=== PATIENT | female | born 2000 | race Caucasian/White ===

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

== ENCOUNTER 2022-02-20 15:13 | Emergency (ER) | payer OTHER, BC, SELFPAY ==
[2022-02-20 15:19] VITALS: BP 110/71; PULSE 87; RESP 16; TEMP 37.2; O2SAT 100
--- NOTE | 2022-02-20 16:27 | ED.URI ---
HPI - URI/Sore Throat General Chief Complaint: Upper Respiratory Infection Stated Complaint: flu Time Seen by Provider: 02/20/22 16:27 Source: patient, RN notes reviewed and old records reviewed Mode of arrival: ambulatory Limitations: no limitations History of Present Illness HPI Narrative: 22-year-old female presents to [facility] with complaints of 1 day duration of sore throat, fevers,body aches, some headache pain. Patient denies any ear pain, reports that she has some body aches,has not taken any OTC medication for her symptoms.Patient reports that she has had COVID vaccinations and also flu shot. MD elicited complaint: sore throat, rhinorrhea, nasal congestion and other (headache) Onset (ago): day(s) (1) Treatments prior to arrival: none Related Data Home Medications Medication Instructions Recorded Confirmed levonorgestrel 20 mcg/24 hours (8 1 insert intrauterine ONCE 02/24/21 02/24/21 yrs) 52 mg intrauterine device (Mirena) Allergies Allergy/AdvReac Type Severity Reaction Status Date / Time No Known Allergies Allergy Unknown Verified 02/24/21 19:03 Review of Systems Review of Systems: CONSTITUTIONAL: Reports malaise, chills, sweats, or fever. EYES: Denies visual changes, redness, or discharge. ENT: Reports rhinorrhea, congestion, sinus pain,no otalgia some sore throat. CARDIOVASCULAR: Denies chest pain, palpitations, or edema. RESPIRATORY: Reports cough.? Denies dyspnea. GASTROINTESTINAL: Denies abdominal pain,no nausea, vomiting, diarrhea SKIN: Denies rash or itching. MUSCULOSKELETAL: Reports myalgia. NEUROLOGIC: positive headache. All systems reviewed & are unremarkable except as noted in HPI and below PMFSH Comments At time of signature, agree with nursing past medical, surgical, social and family history. There is no relevant family history pertinent to the presenting complaint Exam Narrative: GENERAL: Well-appearing, well-nourished, and in no acute distress. HEAD: Normocephalic EYES: PERRLA, conjunctivae clear ENT: Nares clear, turbinates edematous and erythematous, clear discharge. Mucous membranes moist. TM pearly mccoy with dull light reflex bilaterally; no tragal tenderness. Oropharynx erythematous without lesions. Tonsils not enlarged and without exudate, no drooling, no hoarseness, no trismus, uvula midline. Postnasal drainage noted NECK: Supple. No lymphadenopathy CHEST: Clear to auscultation, breath sounds equal. No wheezing, rhonchi, rales, or stridor. No respiratory distress, speaks in full sentences. Cough SaO2 HEART: Regular rate and rhythm. No murmur heard. SKIN: Warm, dry, no rash. NEURO: Alert and oriented x3. PSYCH: Normal mood and affect Course Course Emergency Course: Patient is aware of diagnosis, understands and agrees to treatment plan.? Anticipatory guidance given.? Patient agrees to follow-up as directed and is aware of reasons to seek care at the emergency department. Portions of this record may have been created with voice recognition software Level of Care: Express Care Visit Vital Signs Vital signs: Vital Signs Temperature 37.2 C 02/20/22 15:19 Pulse Rate 87 02/20/22 15:19 Respiratory Rate 16 02/20/22 15:19 Blood Pressure 110/71 02/20/22 15:19 Pulse Oximetry 100 02/20/22 15:19 Oxygen Delivery Room Air 02/20/22 15:19 Temperature 37.2 C 02/20/22 15:19 Pulse Rate 87 02/20/22 15:19 Respiratory Rate 16 02/20/22 15:19 Blood Pressure 110/71 02/20/22 15:19 Pulse Oximetry 100 02/20/22 15:19 Oxygen Delivery Room Air 02/20/22 15:19 Reviewed MDM - URI/Sore Throat MDM Narrative Medical decision making narrative: Differential diagnosis considered: Pina virus, strep pharyngitis, allergic rhinitis, upper respiratory tract infection, sinusitis, rhinosinusitis, nasopharyngitis. viral pharyngitis, otitis media, otitis externa, pneumonia, bronchitis, viral cough syndrome, viral syndrome, and
== END 2022-02-20 16:54 | disposition home or self-care (01) ==
PROVIDERS: Emergency Provider Registered Nurse; PCP Pediatrics
DX: J06.9 Acute upper respiratory infection, unspecified (principal)
CPT/HCPCS: 99213; G0463

== ENCOUNTER 2022-05-01 12:34 | Emergency (ER) | payer OTHER, BC, SELFPAY ==
--- NOTE | 2022-05-01 12:38 | ED.NAVMDI ---
HPI - Nausea/Vomiting/Diarrhea General Chief complaint: Nausea/Vomiting/Diarrhea Stated complaint: vomiting/weakness Time Seen by Provider: 05/01/22 12:39 Source: patient and RN notes reviewed History of Present Illness HPI Narrative: Patient is a 22-year-old female presents to urgent care with mother with complaints of vomiting yesterday and upset stomach today. Patient states that she had chicken yesterday and no one else in the home was ill. States that it started about 2:00 a.m. and lasted till 2:00 p.m. on Sunday. Patient states she has not vomited or had any diarrhea since then but does have an upset stomach. Denies any known fevers. States that she has been able to eat or drink without vomiting. No other acute complaints. No acute distress noted. Patient aware of the plan of care. Some parts of this dictation were generated by voice recognition software and may contain typographical and/or grammatical inaccuracies. Related Data Home Medications Medication Instructions Recorded Confirmed levonorgestrel 21 mcg/24 hours (8 1 insert intrauterine ONCE 02/24/21 05/01/22 yrs) 52 mg intrauterine device (Mirena) Allergies Allergy/AdvReac Type Severity Reaction Status Date / Time No Known Allergies Allergy Unknown Verified 05/01/22 12:47 Review of Systems Review of Systems: CONSTITUTIONAL: Denies fever, chills, or sweats. EYES: Denies visual changes, redness, or discharge. ENT: Denies rhinorrhea, congestion, sore throat, or otalgia. CARDIOVASCULAR: Denies chest pain, palpitations, or edema. RESPIRATORY: Denies cough or dyspnea. GASTROINTESTINAL: Reports of upset stomach and vomiting yesterday GENITOURINARY: Denies dysuria or hematuria. SKIN: Denies rash or itching. MUSCULOSKELETAL: Denies back pain, joint pain, or myalgia. NEUROLOGIC: Denies headache, numbness, or weakness. All other systems reviewed are negative, except as documented in HPI. PMFSH Comments At the time of my signature, I reviewed and agree with the nursing past medical, surgical, social, and family history. There is no relevant family history pertinent to the patient complaint. Exam Narrative: GENERAL: This is a well-nourished, well-developed patient, in no apparent distress. HEAD: normocephalic, atraumatic. EYES: PERRL. Sclera clear/white. Vision is grossly intact. EARS: External ears normal, auditory canals clear and without drainage, TMs normal without perforation. Hearing grossly intact. NOSE: External nose normal with no obvious nasal discharge, nares without redness, no rhinorrhea. THROAT: Mucous membranes moist, posterior pharynx clear. NECK: Neck supple, non-tender without lymphadenopathy, masses or thyromegaly. CARDIOVASCULAR: Regular rate and rhythm without murmurs, gallops, or rubs. RESPIRATORY: Clear to auscultation. Breath sounds equal bilaterally. No wheezes, rales, or rhonchi. GASTROINTESTINAL: Abdomen soft, diffuse tenderness more located in the left lower abdomen, nondistended. Bowel sounds are active. SKIN: warm, intact with no suspicious lesions or rash, good texture and turgor. NEURO: awake, alert, and oriented to person, place and time. There were no obvious focal neurologic abnormalities. EXTREMITIES: No clubbing, cyanosis, or edema. BACK: Negative bilateral CVA tenderness Course Course Level of Care: Express Care Visit Vital Signs Vital signs: Vital Signs Temperature 98.0 F 05/01/22 12:42 Pulse Rate 82 05/01/22 12:42 Respiratory Rate 14 05/01/22 12:42 Blood Pressure 124/69 05/01/22 12:42 Pulse Oximetry 97 05/01/22 12:42 Oxygen Delivery Room Air 05/01/22 12:42 Temperature 98.0 F 05/01/22 12:47 Pulse Rate 82 05/01/22 12:47 Respiratory Rate 14 05/01/22 12:47 Blood Pressure 124/69 05/01/22 12:47 Pulse Oximetry 97 05/01/22 12:47 Oxygen Delivery Room Air 05/01/22 12:47 Reviewed MDM - Nausea/Vomiting/Diarrhea MDM Narrative Medical decision making narrative: Rose
[2022-05-01 12:42] VITALS: BP 124/69; PULSE 82; RESP 14; TEMP 36.7; O2SAT 97
[2022-05-01 12:47] VITALS: BP 124/69; PULSE 82; RESP 14; TEMP 36.7; O2SAT 97
== END 2022-05-01 13:43 | disposition home or self-care (01) ==
PROVIDERS: Emergency Provider Nurse Practitioner Family
DX: N39.0 Urinary tract infection, site not specified (principal)
CPT/HCPCS: 81003; 87077; 87081; 87086; 87088; 87880; 99213; G0463